=== PATIENT | male | born 1960 | race Caucasian/White ===

== ENCOUNTER → 2021-01-24 | Day surgery (SDC) | payer BC ==
[2021-01-23 08:08] LABS: BASOPHILS # (AUTO) 0.1 (0.0-0.1); BASOPHILS % 0.6 % (0.0-1.0); EOSINOPHILS % 0.1 % (0.0-6.0); HEMATOCRIT 43.2 % (38.2-49.6); HEMOGLOBIN 14.8 g/dL (14.0-18.0); LYMPHOCYTES # (AUTO) 2.1 (1.0-3.2); LYMPHOCYTES % 20.7 % (18.0-39.1); MEAN CORPUSCULAR HGB CONC 34.3 g/dL (31-35); MEAN CORPUSCULAR VOLUME 90.4 fL (81-99); MONOCYTES # (AUTO) 0.8 (0.2-0.8); MONOCYTES % 7.5 % (4.4-11.3); NEUTROPHILS # (AUTO) 7.1 (2.1-6.9); NEUTROPHILS % 70.9 % (38.7-80.0); PLATELET COUNT 199 x10e3/uL (140-360); RED BLOOD COUNT 4.78 x10e6/uL (4.3-5.7); RED CELL DISTRIBUTION WIDTH 12.4 % (11.7-14.4)
[2021-01-23 08:34] LABS: ALANINE AMINOTRANSFERASE 28 IU/L (0-55); ALBUMIN 4.1 g/dL (3.5-5.0); ALBUMIN/GLOBULIN RATIO 1.1 (0.8-2.0); ALKALINE PHOSPHATASE 102 IU/L (40-150); ANION GAP 14.5 mmol/L (8-16); BLOOD UREA NITROGEN 11 mg/dL (7-26); BUN/CREATININE RATIO 11 (6-25); CALCIUM 9.3 mg/dL (8.4-10.2); CARBON DIOXIDE 27 mmol/L (22-29); CHLORIDE 98 mmol/L (98-107); CREATININE, SERUM 1.03 mg/dL (0.72-1.25); EST GLOMERULAR FILTRATION RATE > 60 ML/MIN (60-); GLUCOSE 178 mg/dL (74-118); POTASSIUM 4.5 mmol/L (3.5-5.1); SODIUM 135 mmol/L (136-145)
[~2021-01-24] MED LIST: ESSENTIAL DAIL1 EACH PO; LIDOCAINE HCL 2% LOCAL INJ 5 ML SDV VIAL INJ ONE; LISINOPRIL-HCT1 EAC1 PO; PROPOFOL IV EMULSION 10 MG/ML 20 ML VIAL ONE; SUPER B COMPLE1 EACH PO; VITAMIN D3 PO
[2021-01-24 10:05] VITALS: BP 125/69
== END | disposition home or self-care (01) ==
LOC: OR 06:48
PROVIDERS: ATTEND Surgery
DX: Z12.11 Encounter for screening for malignant neoplasm of colon (principal); K57.30 Diverticulosis of large intestine without perforation or abscess without bleeding; K21.9 Gastro-esophageal reflux disease without esophagitis; I10 Essential (primary) hypertension; R73.03 Prediabetes; R00.1 Bradycardia, unspecified; F41.9 Anxiety disorder, unspecified; Z01.810 Encounter for preprocedural cardiovascular examination; Z01.812 Encounter for preprocedural laboratory examination; Z01.818 Encounter for other preprocedural examination; Z20.822 Contact with and (suspected) exposure to COVID-19
CPT/HCPCS: 36415; 45378; 71046; 80053; 85025; 93005; J2001; J2704; U0002

== ENCOUNTER 2021-02-06 07:02 | Observation (INO) | payer BC ==
[~2021-02-06] VITALS: Ht 182.9 cm; Wt 119.7 kg
[~2021-02-06 07:02] MED LIST changes: -LIDOCAINE HCL 2% LOCAL INJ 5 ML SDV VIAL INJ ONE; -PROPOFOL IV EMULSION 10 MG/ML 20 ML VIAL ONE
[2021-02-06] MEDS ORDERED: BUPIVACAINE 0.25% 30ML SDV ONE (08:46)
[2021-02-06] MEDS ORDERED: ACETAMINOPHEN 1000 MG/100 ML 100 ML IV ONE (10:25)
[2021-02-06] MEDS ORDERED: HYDROMORPHONE 1MG/1ML INJ IV PRN (11:30)
[2021-02-06] MEDS ORDERED: FENTANYL CITRATE/PF 100MCG/2 ML INJ ONE (11:34)
[2021-02-06] MEDS ORDERED: ONDANSETRON HCL INJ 2MG/ML 2ML 2 MG/ML VIAL ONE ×2 (11:51→19:51)
[2021-02-06] MEDS ORDERED: METOCLOPRAMIDE HCL 10 MG/2ML VIAL ONE (11:51)
[2021-02-06] MEDS ORDERED: MORPHINE SULFATE INJ 2 MG/ML SYR ONE (11:52)
[2021-02-06] MEDS ORDERED: HYDROCODONE/APAP 7.5MG-325MG 1 EA TAB ONE (13:47)
[2021-02-06 13:58] VITALS: BP 167/68
[2021-02-06] MEDS: KETOROLAC TROMETHAMINE 30 MG/ML VIAL IV PRN (14:33)
[2021-02-06] MEDS: SODIUM CHLORIDE 0.9% 1000ML 1,000 ML IV SCH ×2 (14:41→21:13)
[2021-02-06 15:45] VITALS: BP 166/64
[2021-02-06] MEDS: PANTOPRAZOLE 40 MG 10ML VIAL IV SCH (16:11)
[2021-02-06] MEDS: CEFAZOLIN SOD 1 GM in SODIUM CHLORIDE 0.9% 50ML 50 ML IV SCH (16:11)
[2021-02-06] MEDS ORDERED: SEVOFLURANE INHAL SOLN 250 ML PEN BTL ONE (19:51)
[2021-02-06] MEDS ORDERED: DEXAMETHASONE SOD PHOS INJ 4 MG/ML VIAL ONE (19:51)
[2021-02-06] MEDS ORDERED: NEOSTIGMINE 1 MG/ML 10ML VIAL ONE (19:51)
[2021-02-06] MEDS ORDERED: POVIDONE IODINE 0.05% 0.05 % ML PO ONE (19:51)
[2021-02-06] MEDS ORDERED: ROCURONIUM BROMIDE 10 MG/ML 5ML VIAL IV ONE (19:51)
[2021-02-06] MEDS ORDERED: GLYCOPYRROLATE INJ 0.2 MG/ML VIAL ONE (19:51)
[2021-02-06] MEDS ORDERED: PROPOFOL IV EMULSION 10 MG/ML 20 ML VIAL ONE (19:51)
[2021-02-06] MEDS ORDERED: LIDOCAINE HCL 2% LOCAL INJ 5 ML SDV VIAL INJ ONE (19:51)
[2021-02-06] MEDS ORDERED: CEFAZOLIN SOD 1 GM VIAL ONE (19:51)
[2021-02-06] MEDS ORDERED: KETOROLAC TROMETHAMINE 30 MG/ML VIAL ONE (19:51)
[2021-02-06 20:44] VITALS: BP 153/70
[2021-02-06 21:00] VITALS: BP 153/70
[2021-02-06] MEDS ORDERED: HYDROCHLOROTHIAZIDE 25 MG TAB PO SCH (21:00)
[2021-02-06] MEDS ORDERED: LISINOPRIL 20 MG TAB PO SCH (21:00)
[2021-02-06] MEDS: HYDROCODONE/APAP 7.5MG-325MG 1 EA TAB PO PRN (21:10)
[2021-02-07 00:54] VITALS: BP 132/67
[2021-02-07] MEDS: CEFAZOLIN SOD 1 GM in SODIUM CHLORIDE 0.9% 50ML 50 ML IV SCH (02:28)
[2021-02-07] MEDS: HYDROCODONE/APAP 7.5MG-325MG 1 EA TAB PO PRN ×3 (04:36→19:09)
[2021-02-07 05:06] VITALS: BP 144/62
[2021-02-07 08:07] VITALS: BP 148/63
[2021-02-07] MEDS: SODIUM CHLORIDE 0.9% 1000ML 1,000 ML IV SCH ×2 (08:33→17:30)
[2021-02-07] MEDS: KETOROLAC TROMETHAMINE 30 MG/ML VIAL IV PRN ×2 (08:44→15:31)
[2021-02-07 09:00] VITALS: BP 148/63
[2021-02-07 11:40] VITALS: BP 145/74
[2021-02-07 16:03] VITALS: BP 157/76
[2021-02-07] MEDS: PANTOPRAZOLE 40 MG 10ML VIAL IV SCH (18:14)
== END 2021-02-07 20:19 | disposition home or self-care (01) ==
LOC: OR 07:02 → PACU V 11:16 → MED/SURG 14:11
PROVIDERS: ADMIT Surgery; ATTEND Surgery
DX: K42.0 Umbilical hernia with obstruction, without gangrene (principal); Z20.822 Contact with and (suspected) exposure to COVID-19; I10 Essential (primary) hypertension
CPT/HCPCS: 36415 ×2; 49585; 82948 ×2; C1781; C9113; G0378 ×2; J0131; J0690 ×2; J1100; J1885 ×2; J2001; J2270; J2405; J2704; J2710; J2765; J3010; J7030 ×2; U0002